=== PATIENT | male | born 1965 | race Caucasian/White ===

== ENCOUNTER 2025-08-31 07:23 | Day surgery (SDC) | payer BC, SELFPAY ==
[2025-08-31] VITALS (10 sets, daily range): BP systolic 109–137; BP diastolic 74–95; PULSE 66–75; RESP 16; TEMP 36.7–37.9; O2SAT 92–99; BMI 35.1
[2025-08-31] MEDS: LACTATED RINGERS 1000 ML 1,000 ML 100 ML IV ×2 (07:30→10:54)
[2025-08-31] MEDS: SODIUM CHLORIDE 0.9 % (FLUSH) 10 ML SYRINGE IVF (08:04)
--- NOTE | 2025-08-31 08:43 | W.PM.H&PU ---
History & Physical Update History & Physical Update H&P Reviewed and patient assessed: The following changes are noted below H&P Updates: Patient developed some sinus congestion over the weekend. No cough or shortness of breath. Will defer to Anesthesia as to whether this should delay surgery.
--- NOTE | 2025-08-31 08:45 | P.GSOP_ITS ---
Operative Note Date of procedure: 08/31/25 Pre-op diagnosis: Biliary colic secondary to gallstones Post-op diagnosis: Same Type of Procedure: Laparoscopic cholecystectomy Indications: The patient is a 59-year-old male who has had a several year history of right upper quadrant pain after eating. He has known gallstones. Recently he had a more severe episode which prompted him to discuss cholecystectomy. After discussion of options, he elected to proceed. Procedure Description: After discussing the risks and benefits of the procedure, the patient signed informed consent.? The operative site was marked and the patient was brought to the operating room and placed on the operating table in supine position.? Care was taken to pad the patient's pressure points.?? The patient was then intubated by anesthesia.?? The operative site was then prepped and draped in the usual sterile fashion.? A time-out was then performed. Entrance to the abdomen was gained via a 5 mm Visiport in the left upper quadrant. The abdomen was insufflated and briefly surveyed for signs of injury. There was none. A 10 mm umbilical port was placed as well as 2 working ports along the right costal margin, all under direct vision. The patient was then placed in reverse Trendelenburg position with the right side up. The gallbladder fundus was grasped and retracted cephalad. The infundibulum was grasped. There was a large stone palpable in the gallbladder. A combination of hook cautery and blunt dissection was used to carefully dissect out the cystic duct and artery until they could clearly be seen entering the gallbladder without any intervening structures. The gallbladder was dissected off the cystic plate to achieve the critical view. Once this was achieved the cystic duct and artery were each clipped with 2 clips proximally and 1 clip on the specimen side and transected with the scissors. The gallbladder was then taken off of the liver bed and removed from the abdomen using an Endo-Catch bag. A small bleeding vessel in the gallbladder bed was clipped for hemostasis. The ports were jeb rikki and the abdomen desufflated. The umbilical port fascia was closed with multiple [id number] Vicryl sutures. The skin was closed with absorbable subcuticular suture. Sterile dressings were applied. Instrument sponge and needle counts were correct at the end of the case. The patient was then woken and transferred to the PACU in stable condition. ? The patient tolerated the procedure well. Findings: Large gallstones noted in the gallbladder Surgeon: Danya Amato MD Estimated blood loss (mL): 5 Specimen: Gallbladder Condition: stable Disposition: PACU
[2025-08-31] MEDS: BUPIVACAINE 0.25% 30 ML INJECTION (10:22)
--- NOTE | 2025-08-31 10:45 | P.ANES_ITS ---
Anesthesia Charges Start Date/Time Anesthesia Start Date: 08/31/25 Anesthesia Start Time: 09:19 Stop Date/Time Anesthesia Stop Date: 08/31/25 Anesthesia Stop Time: 10:40 Coding CPT Codes CPT Codes: ANESTH SURG UPPER ABDOMEN - 11625 ([id number]) P2 - PATIENT W/MILD SYST DISEASE, QK - LENS POLISHER HAND 2-4 CNCRNT ANES PROC, QX - RELIEF PHARMACIST SVC W/ MD MED DIRECTION
--- NOTE | 2025-08-31 10:45 | W.ANESCHARGE ---
Anesthesia Charges Start Date/Time Anesthesia Start Date: 08/31/25 Anesthesia Start Time: 09:19 Stop Date/Time Anesthesia Stop Date: 08/31/25 Anesthesia Stop Time: 10:40 Coding CPT Codes CPT Codes: ANESTH SURG UPPER ABDOMEN - 34108 ([id number]) P2 - PATIENT W/MILD SYST DISEASE, QK - GALLERY OR MUSEUM TECHNICIAN 2-4 CNCRNT ANES PROC, QX - SHOE SINGER SVC W/ MD MED DIRECTION
--- NOTE | 2025-08-31 10:56 | P.ANES_ITS ---
Anesthesia Charges Start Date/Time Anesthesia Start Date: 08/31/25 Anesthesia Start Time: 09:19 Stop Date/Time Anesthesia Stop Date: 08/31/25 Anesthesia Stop Time: 10:40 Coding CPT Codes CPT Codes: ANESTH SURG UPPER ABDOMEN - 64357 ([id number]) QK - BLOOMING MILL SUPERVISOR 2-4 CNCRNT ANES PROC, QX - BUILDING CONSTRUCTION ENGINEER SVC W/ MD MED DIRECTION, P2 - PATIENT W/MILD SYST DISEASE
--- NOTE | 2025-08-31 10:56 | W.ANESCHARGE ---
Anesthesia Charges Start Date/Time Anesthesia Start Date: 08/31/25 Anesthesia Start Time: 09:19 Stop Date/Time Anesthesia Stop Date: 08/31/25 Anesthesia Stop Time: 10:40 Coding CPT Codes CPT Codes: ANESTH SURG UPPER ABDOMEN - 98124 ([id number]) QK - BRANCH SERVICES MANAGER 2-4 CNCRNT ANES PROC, QX - LINE INSTALLER SVC W/ MD MED DIRECTION, P2 - PATIENT W/MILD SYST DISEASE
[2025-08-31] MEDS: HYDROCODONE-ACETAMIN 5-325 MG 1 TAB PO (12:18)
== END 2025-08-31 12:40 | disposition home or self-care (01) ==
PROVIDERS: PCP Student in an Organized Health Care Education/Training Program; Visit Provider Surgery
PROC: 0FT44ZZ Resection of Gallbladder, Percutaneous Endoscopic Approach (ICD-10-PCS; CPT 47562; principal; 2025-08-31 08:45)
DX: K80.20 Calculus of gallbladder without cholecystitis without obstruction (principal)
CPT/HCPCS: 47562; 00790; A9270; J0330; J0665; J0690; J1100; J1171; J1885; J2250; J2405; J2704; J3010; J3490; J7120